=== PATIENT | female | born 1960 | race Caucasian/White ===

== ENCOUNTER 2024-11-20 21:15 | Inpatient (IN) | payer MEDICARE ==
[~2024-11-20] VITALS: Ht 172.7 cm; Wt 82.3 kg
[2024-11-20 22:08] LABS: BASOPHILS ABSOLUTE AUTO 0.07 K/mm3 (0.00-0.23); BASOPHILS PERCENT AUTO 1 % (0-2); EOSINOPHILS ABSOLUTE AUTO 0.07 K/mm3 (0.00-0.68); EOSINOPHILS PERCENT AUTO 1 % (0-6); Hematocrit 41.8 % (33.0-51.0); Hemoglobin 13.3 g/dL (11.5-16.0); IMMATURE GRAN ABSOLUTE AUTO 0.04 K/mm3 (0.00-0.10); IMMATURE GRAN PERCENT AUTO 0 % (0-1); LYMPHOCYTES ABSOLUTE AUTO 1.69 K/mm3 (0.84-5.20); LYMPHOCYTES PERCENT AUTO 13 % (21-46); MONOCYTES ABSOLUTE AUTO 0.85 K/mm3 (0.16-1.47); MONOCYTES PERCENT AUTO 6 % (4-13); Mean Corpuscular HGB Conc 31.8 g/dL (31.5-36.5); Mean Corpuscular Volume 87 fL (80-100); NEUTROPHILS ABSOLUTE AUTO 10.84 K/mm3 (1.96-9.15); NEUTROPHILS PERCENT AUTO 80 % (41-73); NRBC ABSOLUTE 0.00 K/mm3 (0.00-0.02); NRBC Auto 0.0 /100 WBC (0.0-0.2); Platelet Count 339 K/mm3 (150-400); RDW Coefficient Variation 17.2 % (11.7-14.2); RDW Standard Deviation 54.4 fL (35.1-46.3)
[2024-11-20 22:36] LABS: Alanine Aminotransfer (ALT/SGP 14 U/L (12-78); Albumin, Blood 3.6 g/dL (3.4-5.0); Albumin/Globulin Ratio 0.8 (0.8-1.8); Anion Gap 10 mmol/L (3-11); Aspartate Aminotrans (AST/SGOT 11 U/L (12-37); Bilirubin, Total 0.7 mg/dL (0.1-1.0); Blood Urea Nitrogen 18 mg/dL (8-24); CO2, Blood 25 mmol/L (21-32); Calcium, Blood 8.9 mg/dL (8.5-10.1); Chloride, Blood 101 mmol/L (98-108); Creatinine, Blood 0.82 mg/dL (0.40-1.00); Globulin, Blood 4.5 g/dL (2.2-4.0); Glucose, Blood 141 mg/dL (70-99); Potassium, Blood 4.1 mmol/L (3.5-5.5); Sodium, Blood 132 mmol/L (136-145); Total Protein, Blood 8.1 g/dL (6.4-8.2)
[2024-11-20] MEDS ORDERED: Doxycycline Hyclate 100 MG in Dextrose 5% 250 ML IV ONE (23:25)
[2024-11-20] MEDS ORDERED: NS 1,000 ML IV SCH (23:25)
[2024-11-20] MEDS ORDERED: CefTRIAXone Sodium 1,000 MG in NS 50 ML IV ONE (23:25)
[2024-11-21] MEDS ORDERED: NS 1,000 ML IV SCH (01:55)
[2024-11-21 02:10] LABS: Source, Urine Clean Catch
[2024-11-21 02:14] LABS: Bilirubin, Urine Neg (Neg); Glucose Qualitative, Urine 4+ (Neg); Ketones, Urine 3+ (Neg); Leukocyte Esterase, Urine Neg (Neg); Protein, Urine 1+ (Neg); Specific Gravity, Urine 1.015 (1.003-1.022); Urobilinogen, Urine NORM (Normal)
[2024-11-21 02:16] LABS: Color, Urine Yellow (P-Yellow)
[2024-11-21] MEDS ORDERED: FentaNYL Citrate 50 MCG/ML 2 ML Injection IV ONE (03:05)
[2024-11-21] MEDS ORDERED: Ondansetron HCl 2 MG / ML 2ML Vial IV PRN (03:55)
[2024-11-21] MEDS ORDERED: Vancomycin (Pharmacy Consult) IV SCH (03:55)
[2024-11-21] MEDS ORDERED: Naloxone HCl 0.4MG / ML 1ML Vial IV PRN (04:00)
[2024-11-21] MEDS ORDERED: HYDROCODONE-AC1 EAC7 PO (04:05)
[2024-11-21] MEDS ORDERED: LIPITOR80 MG PO (04:05)
[2024-11-21] MEDS ORDERED: OMEP20ER PO (04:07)
[2024-11-21] MEDS ORDERED: JARDIANCE25 MG PO (04:08)
[2024-11-21] MEDS ORDERED: METFORMIN ER G500 MG (04:08)
[2024-11-21] MEDS ORDERED: OXYCONTIN30 MG PO (04:09)
[2024-11-21] MEDS ORDERED: BENADRYL25 MG PO (04:10)
[2024-11-21] MEDS ORDERED: Ketorolac Tromethamine 15mg Vial IV PRN (04:15)
[2024-11-21] MEDS ORDERED: HYDROcodone 10-APAP 325 TAB PO PRN (04:45)
[2024-11-21 05:13] VITALS: BP 115/64
[2024-11-21 05:18] LABS: U Amphetamine Screen Not Detected; U Barbituate Screen Not Detected; U Benzodiazapine Screen DETECTED; U Cocaine Screen Not Detected; U Methadone Screen Not Detected; U Methamphetamine Screen Not Detected; U Opiates Screen DETECTED; U Phencyclidine Screen Not Detected
[2024-11-21 05:19] LABS: U Buprenorphine Screen Not Detected; U Cannabinoids Screen Not Detected; U Oxycodone Screen DETECTED
[2024-11-21] MEDS ORDERED: NS 250 ML IV PRN (06:00)
[2024-11-21 06:13] LABS: BASOPHILS ABSOLUTE AUTO 0.04 K/mm3 (0.00-0.23); BASOPHILS PERCENT AUTO 0 % (0-2); EOSINOPHILS ABSOLUTE AUTO 0.00 K/mm3 (0.00-0.68); EOSINOPHILS PERCENT AUTO 0 % (0-6); Hematocrit 35.3 % (33.0-51.0); Hemoglobin 11.3 g/dL (11.5-16.0); IMMATURE GRAN ABSOLUTE AUTO 0.04 K/mm3 (0.00-0.10); IMMATURE GRAN PERCENT AUTO 0 % (0-1); LYMPHOCYTES ABSOLUTE AUTO 1.10 K/mm3 (0.84-5.20); LYMPHOCYTES PERCENT AUTO 12 % (21-46); MONOCYTES ABSOLUTE AUTO 0.62 K/mm3 (0.16-1.47); MONOCYTES PERCENT AUTO 7 % (4-13); Mean Corpuscular HGB Conc 32.0 g/dL (31.5-36.5); Mean Corpuscular Volume 89 fL (80-100); NEUTROPHILS ABSOLUTE AUTO 7.77 K/mm3 (1.96-9.15); NEUTROPHILS PERCENT AUTO 81 % (41-73); NRBC ABSOLUTE 0.00 K/mm3 (0.00-0.02); NRBC Auto 0.0 /100 WBC (0.0-0.2); Platelet Count 304 K/mm3 (150-400); RDW Coefficient Variation 17.1 % (11.7-14.2); RDW Standard Deviation 55.7 fL (35.1-46.3)
[2024-11-21 06:44] LABS: Alanine Aminotransfer (ALT/SGP 11.0 U/L (12-78); Albumin, Blood 3.1 g/dL (3.4-5.0); Albumin/Globulin Ratio 0.8 (0.8-1.8); Anion Gap 11.0 mmol/L (3-11); Aspartate Aminotrans (AST/SGOT 8.0 U/L (12-37); Bilirubin, Total 0.5 mg/dL (0.1-1.0); Blood Urea Nitrogen 14.0 mg/dL (8-24); CO2, Blood 24.0 mmol/L (21-32); Calcium, Blood 7.8 mg/dL (8.5-10.1); Chloride, Blood 103.0 mmol/L (98-108); Creatinine, Blood 0.71 mg/dL (0.40-1.00); Globulin, Blood 3.7 g/dL (2.2-4.0); Glucose, Blood 74.0 mg/dL (70-99); Potassium, Blood 3.4 mmol/L (3.5-5.5); Sodium, Blood 135.0 mmol/L (136-145); Total Protein, Blood 6.8 g/dL (6.4-8.2)
--- NOTE | 2024-11-21 06:52 | NUR ---
SHIFT SUMMARY PT ADMITTED TO ROOM 359 AT 0440. ABLE TO TRANSFER TO BED INDEPENDENTLY. PT HAS WALKING CANE AND IS INDEPENDENT IN ROOM. RIGHT ELBOW WAS LANCED IN ED. PICTURE TAKEN AND DRESSED WITH NONADHERENT DRESSING. PT DENIES THE NEED FOR PAIN MEDICATION. IV VANCOMYCIN RUNNING PER ORDER. PT HAD HOME MEDICATIONS INCLUDING LORAZEPAM AND OXYCONTIN- MEDS SENT TO PHARMACY. BED IN LOWEST POSITION, CALL LIGHT WITHIN REACH, SIDERAILS UP X2.
[2024-11-21] MEDS ORDERED: Insulin Human Lispro 100 Units/ML 3ML Syringe SC SCH (07:30)
[2024-11-21 08:13] VITALS: BP 132/63
[2024-11-21] MEDS ORDERED: Lactobacil 2-S.Thermo-Bifido 1 1 Cap PO SCH (09:00)
[2024-11-21] MEDS ORDERED: OxyCODONE HCL 15 MG TAB.SR.12H PO SCH (09:00)
[2024-11-21] MEDS ORDERED: Mag Sulfate 1 GM/D5% 100ML 100 ML IV STA (09:58)
[2024-11-21] MEDS ORDERED: Docusate Sodium/Senna 1 Tab PO PRN (15:30)
[2024-11-21] MEDS ORDERED: Polyethylene Glycol 3350 17 gm PO PRN (15:30)
[2024-11-21] MEDS ORDERED: CefTRIAXone Sodium 1,000 MG in NS 100 ML IV SCH (15:36)
[2024-11-21 15:53] VITALS: BP 118/61
--- NOTE | 2024-11-21 17:18 | NUR ---
SHIFT SUMMARY PATIENT A/OX4, ABLE TO MAKE NEEDS KNOWN. PLEASANT AND COOPERATIVE WITH CARE. COMPLAINING OF RIGHT ELBOW PAIN, MEDICATED WITH SCHEDULED PAIN MEDS PER JUL WHICH WERE EFFECTIOVE IN MANAGING PATIENT'S PAIN. IV ABX INFUSED PER JUL. ORTHO CONSULTED AND DR. BRANDON ORDERED CT OF R ELBOW, WHICH HAS YET TO BE OBTAINED. ELEVATED TEMP THIS MORNIONG AT 99 DEGREES F WHICH HAS SINCE SUBSIDED. NICOTINE PATCH ORDERED. NO OTHER CONCERNS AT THIS TIME, WILL CONTINUE TO MONITOR.
--- NOTE | 2024-11-21 18:29 | NUR ---
URINARY RETENTION-MD CONTACT POST VOID BLADDER SCAN SHOWED [address] FRANCOIS NOTIFIED AND ORDER TO [place] TO MONITOR AND STRICT OUTPUT MEASUREMENT. BLADDER SCAN ORDER IN PLACE. WILL CONTNUE TO MONITOR.
[2024-11-21 19:45] VITALS: BP 130/70
[2024-11-22] VITALS (15 sets, daily range): BP systolic 103–164; BP diastolic 53–104
[2024-11-22 05:08] LABS: BASOPHILS ABSOLUTE AUTO 0.03 K/mm3 (0.00-0.23); BASOPHILS PERCENT AUTO 0 % (0-2); EOSINOPHILS ABSOLUTE AUTO 0.09 K/mm3 (0.00-0.68); EOSINOPHILS PERCENT AUTO 1 % (0-6); Hematocrit 35.6 % (33.0-51.0); Hemoglobin 11.4 g/dL (11.5-16.0); IMMATURE GRAN ABSOLUTE AUTO 0.03 K/mm3 (0.00-0.10); IMMATURE GRAN PERCENT AUTO 0 % (0-1); LYMPHOCYTES ABSOLUTE AUTO 1.73 K/mm3 (0.84-5.20); LYMPHOCYTES PERCENT AUTO 26 % (21-46); MONOCYTES ABSOLUTE AUTO 0.72 K/mm3 (0.16-1.47); MONOCYTES PERCENT AUTO 11 % (4-13); Mean Corpuscular HGB Conc 32.0 g/dL (31.5-36.5); Mean Corpuscular Volume 88 fL (80-100); NEUTROPHILS ABSOLUTE AUTO 4.12 K/mm3 (1.96-9.15); NEUTROPHILS PERCENT AUTO 62 % (41-73); NRBC ABSOLUTE 0.00 K/mm3 (0.00-0.02); NRBC Auto 0.0 /100 WBC (0.0-0.2); Platelet Count 287 K/mm3 (150-400); RDW Coefficient Variation 17.2 % (11.7-14.2); RDW Standard Deviation 54.9 fL (35.1-46.3)
[2024-11-22 05:30] LABS: Anion Gap 7.0 mmol/L (3-11); Blood Urea Nitrogen 8.0 mg/dL (8-24); CO2, Blood 29.0 mmol/L (21-32); Calcium, Blood 8.4 mg/dL (8.5-10.1); Chloride, Blood 107.0 mmol/L (98-108); Creatinine, Blood 0.66 mg/dL (0.40-1.00); Glucose, Blood 90.0 mg/dL (70-99); Magnesium, Blood 1.8 mg/dL (1.6-2.4); Potassium, Blood 3.6 mmol/L (3.5-5.5); Sodium, Blood 139.0 mmol/L (136-145)
--- NOTE | 2024-11-22 06:36 | NUR ---
SHIFT SUMMARY PT SLEPT SHORT INTERVALS DURING THE NIGHT. RIGHT ELBOW CELLULITIS CONTINUES. CT DONE LAST NIGHT. PT NPO AFTER MIDNIGHT FOR POSSIBLE INTERVENTION. SCHEDULED PAIN MEDS PER EMAR. IV ANTIBIOTICS PER ORDER. PT INDEPENDENT IN ROOM. VOIDING LARGE AMOUNTS. BED IN LOWEST POSITION, CALL LIGHT WITHIN REACH, SIDERAILS UP X2.
[2024-11-22] MEDS ORDERED: D5W-1/4NS 1,000 ML IV SCH (12:00)
--- NOTE | 2024-11-22 12:00 | NUR ---
THIS RN COVERING FOR COURTNEY ZARCO DURING LUNCH. EFRAIN CBG IS 79. CALL TO [facility] ORDER RECEIVED FOR D5 1/2 NS AT 75ML/HR FROM .
[2024-11-22] MEDS ORDERED: D5W-1/2NS 1,000 ML IV SCH (12:05)
[2024-11-22] MEDS ORDERED: FentaNYL Citrate 50 MCG/ML 2 ML Injection ONE ×3 (12:14→13:43)
--- NOTE | 2024-11-22 12:26 | NUR ---
PT HAS 20G IV TO LEFT AC THAT FLUSHES WELL AND FLOWS TO GRAVITY.
[2024-11-22] MEDS ORDERED: OZEMPIC0.25 MG/02 SQ (12:33)
--- NOTE | 2024-11-22 12:39 | NUR ---
PT BROUGHT FROM FLOOR TO DAY SURGERY FOR PROCEDURE. VSS. PT ON RA. PT A&OX4. History, Chart, Medications and Allergies reviewed before start of procedure. Lungs clear T/O to Auscultation. Patient confirms NPO status and agrees with scheduled surgery. Pre-Op teaching done. Pt verbalizes understanding. PT JEWELRY, EARBUDS AND GLASSES PLACED IN A BAG AND TAKEN TO PACU FOR SAFEKEEPING. PT OTHER BELONGINGS LEFT IN PERSONAL ROOM ON MEDICAL FLOOR.
[2024-11-22] MEDS ORDERED: HYDROmorphone HCl/Pf 1MG SYR IV PRN ×2 (13:15)
[2024-11-22] MEDS ORDERED: Labetalol HCL 5 MG/ML 4ML Injection (Single Dose) IV PRN (13:15)
[2024-11-22] MEDS ORDERED: Metoclopramide HCl 5MG / ML 2ML Vial IV PRN (13:15)
[2024-11-22] MEDS ORDERED: Ondansetron HCl 2 MG / ML 2ML Vial IV PRN (13:20)
[2024-11-22] MEDS ORDERED: FentaNYL Citrate 50 MCG/ML 2 ML Injection IV PRN ×2 (13:20)
[2024-11-22] MEDS ORDERED: Sugammadex Sodium 200 MG/2ML SDV (100 MG/ML) ONE (13:21)
[2024-11-22] MEDS ORDERED: HYDROmorphone HCl/Pf 1MG SYR ONE (14:12)
--- NOTE | 2024-11-22 14:45 | NUR ---
DELAYED TRANSFER DUE TO IV INFILTRATED. IV REMOVED AND NEW IV STARTED
--- NOTE | 2024-11-22 15:09 | NUR ---
PT RETUNRED FROM DAY SURGERY. I&D COMPLETED TO R ELBOW. PT REPORTS PAIN WELL CONTROLLED AT THIS TIME. VITALS STABLE. PT IS AWAKE AND ALERT. SMALL BM AFTER RETURNING FROM DAY SURGERY. PT STARTED ON ADA DIET - TOLERATING INTAKE AND SWALLOWING WITHOUT DIFFICULTY. PT CURRENTY RESTING IN BED WITH BED IN LOWEST POSITION AND CALL LIGHT WITHIN REACH.
--- NOTE | 2024-11-22 17:31 | NUR ---
SHIFT SUMMARY NO ACUTE CHANGES, A/Ox4, ABLE TO MAKE NEEDS KNOWN AND USES CALL SYSTEM APPROPRIATELY. I&D OF R ELBOW COMPLETED TODAY. SWALLOWING INTACT, VITALS STABLE, TREATING FOR PAIN PER EMAR. DRESSING C/D/I. PT CURRENTLY RESTING IN BED WITH BED IN LOWEST POSITION AND CALL LIGHT WITHIN REACH.
[2024-11-22 17:46] LABS: Vancomycin, Trough 17.1 ug/mL (5.0-10.0)
[2024-11-23 02:06] VITALS: BP 124/87
--- NOTE | 2024-11-23 04:46 | NUR ---
PT A&O X4, VS WNL, VOIDING WITHOUT ISSUE. PAIN NOTED IN RIGHT ELBOW, MEDICATED WITH ROUTINE OXYCONTINE, AND ICE PACKS. PT INDEPENDENT WITH MOBILITY. CBG WNL, DRESSING INTACT AND NO DRAINAGE NOTED, ALL SENSATION PRESENT IN AFFLICTED LIMB. USES CALL SYSTEM APPROPRIATLY. PLAN TO RETURN TO HOME WITH .
[2024-11-23 05:08] LABS: BASOPHILS ABSOLUTE AUTO 0.03 K/mm3 (0.00-0.23); BASOPHILS PERCENT AUTO 0 % (0-2); EOSINOPHILS ABSOLUTE AUTO 0.22 K/mm3 (0.00-0.68); EOSINOPHILS PERCENT AUTO 3 % (0-6); Hematocrit 36.8 % (33.0-51.0); Hemoglobin 11.6 g/dL (11.5-16.0); IMMATURE GRAN ABSOLUTE AUTO 0.02 K/mm3 (0.00-0.10); IMMATURE GRAN PERCENT AUTO 0 % (0-1); LYMPHOCYTES ABSOLUTE AUTO 2.03 K/mm3 (0.84-5.20); LYMPHOCYTES PERCENT AUTO 26 % (21-46); MONOCYTES ABSOLUTE AUTO 0.72 K/mm3 (0.16-1.47); MONOCYTES PERCENT AUTO 9 % (4-13); Mean Corpuscular HGB Conc 31.5 g/dL (31.5-36.5); Mean Corpuscular Volume 88 fL (80-100); NEUTROPHILS ABSOLUTE AUTO 4.70 K/mm3 (1.96-9.15); NEUTROPHILS PERCENT AUTO 61 % (41-73); NRBC ABSOLUTE 0.00 K/mm3 (0.00-0.02); NRBC Auto 0.0 /100 WBC (0.0-0.2); Platelet Count 292 K/mm3 (150-400); RDW Coefficient Variation 17.2 % (11.7-14.2); RDW Standard Deviation 55.5 fL (35.1-46.3)
[2024-11-23 05:29] LABS: Alanine Aminotransfer (ALT/SGP 17.0 U/L (12-78); Albumin, Blood 2.8 g/dL (3.4-5.0); Albumin/Globulin Ratio 0.7 (0.8-1.8); Anion Gap 9.0 mmol/L (3-11); Aspartate Aminotrans (AST/SGOT 13.0 U/L (12-37); Bilirubin, Total 0.3 mg/dL (0.1-1.0); Blood Urea Nitrogen 11.0 mg/dL (8-24); CO2, Blood 27.0 mmol/L (21-32); Calcium, Blood 8.4 mg/dL (8.5-10.1); Chloride, Blood 108.0 mmol/L (98-108); Creatinine, Blood 0.65 mg/dL (0.40-1.00); Globulin, Blood 3.8 g/dL (2.2-4.0); Glucose, Blood 168.0 mg/dL (70-99); Potassium, Blood 2.9 mmol/L (3.5-5.5); Sodium, Blood 141.0 mmol/L (136-145); Total Protein, Blood 6.6 g/dL (6.4-8.2)
--- NOTE | 2024-11-23 05:42 | NUR ---
POTASSIUM LEVEL LOW THIS AM, SEE NEW ORDERS.
[2024-11-23 07:32] VITALS: BP 127/65
[2024-11-23 12:38] LABS: Anion Gap 10.0 mmol/L (3-11); Blood Urea Nitrogen 12.0 mg/dL (8-24); CO2, Blood 24.0 mmol/L (21-32); Calcium, Blood 8.6 mg/dL (8.5-10.1); Chloride, Blood 109.0 mmol/L (98-108); Creatinine, Blood 0.69 mg/dL (0.40-1.00); Glucose, Blood 179.0 mg/dL (70-99); Potassium, Blood 3.8 mmol/L (3.5-5.5); Sodium, Blood 139.0 mmol/L (136-145)
[2024-11-23] MEDS ORDERED: LORAZEPAM0.5 MG PO (15:04)
[2024-11-23] MEDS ORDERED: CYCL10 PO (15:05)
[2024-11-23] MEDS ORDERED: SYNTHROID137 MCG PO (15:05)
[2024-11-23] MEDS ORDERED: MOBIC15 MG PO (15:05)
[2024-11-23] MEDS ORDERED: GLUCOPHAGE1000 M1 PO (15:06)
--- NOTE | 2024-11-23 18:25 | NUR ---
PATIENT A/OX4, UP INDEPENDENTLY IN ROOM. VSS, ON RA. R ELBOW DRESSING REMAINS C/D/I. DRESSING CHANGES TO START PER DR OLMOS ORDER TOMORROW. PAIN CONTROLLED WITH SCHEDULED OXYCONTIN AND TORADOL X1 THIS SHIFT. REPEAT BLOOD CX DRAWN TODAY AND ECHO COMPLETED. PATIENT PLEASANT AND COOPERAIVE, NO NEW CONCERNS THIS SHIFT.
[2024-11-23 19:49] VITALS: BP 130/92
[2024-11-24 03:11] VITALS: BP 116/66
[2024-11-24 05:03] LABS: BASOPHILS ABSOLUTE AUTO 0.04 K/mm3 (0.00-0.23); BASOPHILS PERCENT AUTO 0 % (0-2); EOSINOPHILS ABSOLUTE AUTO 0.26 K/mm3 (0.00-0.68); EOSINOPHILS PERCENT AUTO 3 % (0-6); Hematocrit 32.6 % (33.0-51.0); Hemoglobin 10.2 g/dL (11.5-16.0); IMMATURE GRAN ABSOLUTE AUTO 0.02 K/mm3 (0.00-0.10); IMMATURE GRAN PERCENT AUTO 0 % (0-1); LYMPHOCYTES ABSOLUTE AUTO 3.03 K/mm3 (0.84-5.20); LYMPHOCYTES PERCENT AUTO 34 % (21-46); MONOCYTES ABSOLUTE AUTO 0.79 K/mm3 (0.16-1.47); MONOCYTES PERCENT AUTO 9 % (4-13); Mean Corpuscular HGB Conc 31.3 g/dL (31.5-36.5); Mean Corpuscular Volume 88 fL (80-100); NEUTROPHILS ABSOLUTE AUTO 4.86 K/mm3 (1.96-9.15); NEUTROPHILS PERCENT AUTO 54 % (41-73); NRBC ABSOLUTE 0.00 K/mm3 (0.00-0.02); NRBC Auto 0.0 /100 WBC (0.0-0.2); Platelet Count 277 K/mm3 (150-400); RDW Coefficient Variation 17.2 % (11.7-14.2); RDW Standard Deviation 54.9 fL (35.1-46.3)
[2024-11-24 05:42] LABS: Anion Gap 9 mmol/L (3-11); Blood Urea Nitrogen 12 mg/dL (8-24); CO2, Blood 26 mmol/L (21-32); Calcium, Blood 8.4 mg/dL (8.5-10.1); Chloride, Blood 111 mmol/L (98-108); Creatinine, Blood 0.68 mg/dL (0.40-1.00); Glucose, Blood 127 mg/dL (70-99); Potassium, Blood 4.5 mmol/L (3.5-5.5); Sodium, Blood 141 mmol/L (136-145)
[2024-11-24 05:43] LABS: Vancomycin, Trough 24.6 ug/mL (5.0-10.0)
--- NOTE | 2024-11-24 07:14 | NUR ---
NO ACUTE CHANGES, CALL LIGHT WTH IN REACH, INDEPEDANT IN ROOM, PLEASANT TO CARE, VANCO HELD DUE TO HIGH TROUGH, MEDICATED FOR PAIN WITH IV TORADOL
[2024-11-24 07:27] VITALS: BP 126/76
[2024-11-24 15:26] VITALS: BP 148/109
[2024-11-24] MEDS ORDERED: FentaNYL Citrate 50 MCG/ML 2 ML Injection IV PRN (17:10)
--- NOTE | 2024-11-24 18:40 | NUR ---
PATIENT ALERT AND COOPERTIVE WITH CARE AND DRESSING CHANGE TODAY. PATIENT VERBALIZED RELIEF AND FELLING BETTER WITH NEW DRESSING. EXTRA SUPPLIES LEFT AT BEDSIDE FOR TOMORROW CHANGE. ABX GIVEN AFTER POWER GLIDE INSERTED. NO CONCERNS
[2024-11-24 19:37] VITALS: BP 140/104
[2024-11-25] VITALS (7 sets, daily range): BP systolic 147–175; BP diastolic 82–110
--- NOTE | 2024-11-25 03:25 | NUR ---
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 PT RECEIVED DRESSING CHANGE PER AM RN. DRESSING REMAINS CDI. PT RECEIVED SCHEDULED OXYCODONE PER EMAR. PT REPORTS PAIN WELL CONTROLLED. NO ADDITIONAL PAIN MEDS NEEDED. PT COOPERATIVE W/ CARE & GETS UP INDEPENDENTLY. BED IN LOWEST POSITION, WHEELS LOCKED. PERSONAL BELONGINGS AND CALL LIGHT WITHIN REACH FOR SAFETY.
[2024-11-25 05:59] LABS: BASOPHILS ABSOLUTE AUTO 0.04 K/mm3 (0.00-0.23); BASOPHILS PERCENT AUTO 0 % (0-2); EOSINOPHILS ABSOLUTE AUTO 0.29 K/mm3 (0.00-0.68); EOSINOPHILS PERCENT AUTO 3 % (0-6); Hematocrit 36.5 % (33.0-51.0); Hemoglobin 11.5 g/dL (11.5-16.0); IMMATURE GRAN ABSOLUTE AUTO 0.03 K/mm3 (0.00-0.10); IMMATURE GRAN PERCENT AUTO 0 % (0-1); LYMPHOCYTES ABSOLUTE AUTO 3.10 K/mm3 (0.84-5.20); LYMPHOCYTES PERCENT AUTO 33 % (21-46); MONOCYTES ABSOLUTE AUTO 0.78 K/mm3 (0.16-1.47); MONOCYTES PERCENT AUTO 8 % (4-13); Mean Corpuscular HGB Conc 31.5 g/dL (31.5-36.5); Mean Corpuscular Volume 87 fL (80-100); NEUTROPHILS ABSOLUTE AUTO 5.17 K/mm3 (1.96-9.15); NEUTROPHILS PERCENT AUTO 55 % (41-73); NRBC ABSOLUTE 0.00 K/mm3 (0.00-0.02); NRBC Auto 0.0 /100 WBC (0.0-0.2); Platelet Count 317 K/mm3 (150-400); RDW Coefficient Variation 17.2 % (11.7-14.2); RDW Standard Deviation 53.9 fL (35.1-46.3)
[2024-11-25 06:21] LABS: Anion Gap 8.0 mmol/L (3-11); Blood Urea Nitrogen 8.0 mg/dL (8-24); CO2, Blood 26.0 mmol/L (21-32); Calcium, Blood 8.9 mg/dL (8.5-10.1); Chloride, Blood 109.0 mmol/L (98-108); Creatinine, Blood 0.62 mg/dL (0.40-1.00); Glucose, Blood 174.0 mg/dL (70-99); Potassium, Blood 3.9 mmol/L (3.5-5.5); Sodium, Blood 139.0 mmol/L (136-145)
--- NOTE | 2024-11-25 18:09 | NUR ---
PATIENT INDEPENDENT WITH SELF CARE AND NEEDS MINIMAL ASSIST FROM STAFF. WOUND CARE DONE TO RIGHT ELBOW AND PATIENT TOLERATED WELL. WOUND APPEARS LESS SWOLLEN THAN YESTERDAY AND PATIENT VERBALIZED FEELING BETTER WHEN WRAPPED WITH KERLEX AND JULIET BANDAGE. PATIENT HAS NO CONCERNS AT THIS TIME.
--- NOTE | 2024-11-25 22:19 | NUR ---
GAVE REPORT TO COOK TORTILLA JOHN WHO ASSUMED CARE @ [id number].
--- NOTE | 2024-11-26 04:39 | NUR ---
NOC SUMMARY- PT CARE ASSUMED BY THIS RN @ 2230 HRS FROM BEN ZARCO. PT HAS BEEN RESTING COMFORTABLY. PT DENIES PAIN OR DISCOMFORT. CALL LIGHT IN REACH.
[2024-11-26 05:02] VITALS: BP 172/90
[2024-11-26 05:25] LABS: BASOPHILS ABSOLUTE AUTO 0.05 K/mm3 (0.00-0.23); BASOPHILS PERCENT AUTO 1 % (0-2); EOSINOPHILS ABSOLUTE AUTO 0.23 K/mm3 (0.00-0.68); EOSINOPHILS PERCENT AUTO 3 % (0-6); Hematocrit 34.4 % (33.0-51.0); Hemoglobin 10.7 g/dL (11.5-16.0); IMMATURE GRAN ABSOLUTE AUTO 0.04 K/mm3 (0.00-0.10); IMMATURE GRAN PERCENT AUTO 0 % (0-1); LYMPHOCYTES ABSOLUTE AUTO 3.41 K/mm3 (0.84-5.20); LYMPHOCYTES PERCENT AUTO 38 % (21-46); MONOCYTES ABSOLUTE AUTO 0.69 K/mm3 (0.16-1.47); MONOCYTES PERCENT AUTO 8 % (4-13); Mean Corpuscular HGB Conc 31.1 g/dL (31.5-36.5); Mean Corpuscular Volume 88 fL (80-100); NEUTROPHILS ABSOLUTE AUTO 4.66 K/mm3 (1.96-9.15); NEUTROPHILS PERCENT AUTO 51 % (41-73); NRBC ABSOLUTE 0.00 K/mm3 (0.00-0.02); NRBC Auto 0.0 /100 WBC (0.0-0.2); Platelet Count 337 K/mm3 (150-400); RDW Coefficient Variation 17.2 % (11.7-14.2); RDW Standard Deviation 55.2 fL (35.1-46.3)
[2024-11-26 06:07] LABS: Anion Gap 8.0 mmol/L (3-11); Blood Urea Nitrogen 7.0 mg/dL (8-24); CO2, Blood 28.0 mmol/L (21-32); Calcium, Blood 8.7 mg/dL (8.5-10.1); Chloride, Blood 108.0 mmol/L (98-108); Creatinine, Blood 0.59 mg/dL (0.40-1.00); Glucose, Blood 99.0 mg/dL (70-99); Potassium, Blood 3.5 mmol/L (3.5-5.5); Sodium, Blood 140.0 mmol/L (136-145)
[2024-11-26 07:27] VITALS: BP 184/92
[2024-11-26 11:22] VITALS: BP 130/89
[2024-11-26 16:59] VITALS: BP 132/65
[2024-11-26 17:35] LABS: Vancomycin, Trough 13.0 ug/mL (5.0-10.0)
--- NOTE | 2024-11-26 17:36 | NUR ---
SHIFT SUMMARY NO ACUTE CHANGES. FULL CODE. A/Ox4, INDEPENDENT IN ROOM. TREATED FOR PAIN PER EMAR. DRESSING CHANGE COMPLETED PER EMAR. PT CURRENTLY SLEEPING IN HOSPITAL BED WITH BED IN LOWEST POSITION AND CALL LIGHT WITHIN REACH.
[2024-11-26 19:29] VITALS: BP 148/82
--- NOTE | 2024-11-27 03:59 | NUR ---
PT ALERT AND ORIENTED X4. PATIENT ON IV ANTIBIOTICS- BRANDY POWERGLIDE IN PLACE. PATIENT ON ROOM UP, UP INDEPENDENTLY IN ROOM. PATIENT GIVEN SCHEDULED OXYCONTIN FOR PAIN. BED IN LOW POSITION WITH WHEELS LOCKED. CALL LIGHT WITHIN REACH.
[2024-11-27 05:40] VITALS: BP 161/90
[2024-11-27 07:21] VITALS: BP 159/80
[2024-11-27 08:39] LABS: BASOPHILS ABSOLUTE AUTO 0.07 K/mm3 (0.00-0.23); BASOPHILS PERCENT AUTO 1 % (0-2); EOSINOPHILS ABSOLUTE AUTO 0.20 K/mm3 (0.00-0.68); EOSINOPHILS PERCENT AUTO 2 % (0-6); Hematocrit 35.5 % (33.0-51.0); Hemoglobin 11.3 g/dL (11.5-16.0); IMMATURE GRAN ABSOLUTE AUTO 0.05 K/mm3 (0.00-0.10); IMMATURE GRAN PERCENT AUTO 1 % (0-1); LYMPHOCYTES ABSOLUTE AUTO 3.97 K/mm3 (0.84-5.20); LYMPHOCYTES PERCENT AUTO 37 % (21-46); MONOCYTES ABSOLUTE AUTO 0.75 K/mm3 (0.16-1.47); MONOCYTES PERCENT AUTO 7 % (4-13); Mean Corpuscular HGB Conc 31.8 g/dL (31.5-36.5); Mean Corpuscular Volume 88 fL (80-100); NEUTROPHILS ABSOLUTE AUTO 5.59 K/mm3 (1.96-9.15); NEUTROPHILS PERCENT AUTO 53 % (41-73); NRBC ABSOLUTE 0.00 K/mm3 (0.00-0.02); NRBC Auto 0.0 /100 WBC (0.0-0.2); Platelet Count 393 K/mm3 (150-400); RDW Coefficient Variation 17.3 % (11.7-14.2); RDW Standard Deviation 55.4 fL (35.1-46.3)
--- NOTE | 2024-11-27 09:00 | NUR ---
pt sitting up on the side of the bed, a/ox4, pleasant and cooperative with care, follows commands well, lungs are clear but dim t/o. resp are shallow, r/a, no cough noted, hrr, no edema noted, ppp+2, cap refill<3 sec, vs stable, afebrile, power glide to maggie site is clear and patent, and draws well, btx4, abd flat soft nontender, voids without diff, skin has dressing to right elbow, c/d/i, mawe, up indep, megan, call light in reach.
[2024-11-27 09:08] LABS: Anion Gap 7.0 mmol/L (3-11); Blood Urea Nitrogen 9.0 mg/dL (8-24); CO2, Blood 28.0 mmol/L (21-32); Calcium, Blood 8.9 mg/dL (8.5-10.1); Chloride, Blood 105.0 mmol/L (98-108); Creatinine, Blood 0.69 mg/dL (0.40-1.00); Glucose, Blood 133.0 mg/dL (70-99); Potassium, Blood 3.5 mmol/L (3.5-5.5); Sodium, Blood 136.0 mmol/L (136-145)
[2024-11-27 11:42] VITALS: BP 161/84
--- NOTE | 2024-11-27 11:48 | NUR ---
nurse called to room because her right arm is swelling, and is in a lot of pain at this time, medicated her with 25mcg fentanyl with good relief, notified Dr. Gonzalez. He will come to see it. call light in reach.
[2024-11-27 16:29] VITALS: BP 131/69
--- NOTE | 2024-11-27 19:15 | NUR ---
pt had an episode of swelling to right arm with pain, gave her a dose of fentanyl per emar, which was effective. notified Dr. Gonzalez, no further changes this shift. call light in reach.
[2024-11-27 19:21] VITALS: BP 142/86
[2024-11-27 23:53] VITALS: BP 180/106
[2024-11-28 00:04] VITALS: BP 154/100
[2024-11-28 03:42] VITALS: BP 164/112
[2024-11-28 04:56] LABS: BASOPHILS ABSOLUTE AUTO 0.05 K/mm3 (0.00-0.23); BASOPHILS PERCENT AUTO 1 % (0-2); EOSINOPHILS ABSOLUTE AUTO 0.20 K/mm3 (0.00-0.68); EOSINOPHILS PERCENT AUTO 2 % (0-6); Hematocrit 33.9 % (33.0-51.0); Hemoglobin 10.5 g/dL (11.5-16.0); IMMATURE GRAN ABSOLUTE AUTO 0.05 K/mm3 (0.00-0.10); IMMATURE GRAN PERCENT AUTO 1 % (0-1); LYMPHOCYTES ABSOLUTE AUTO 3.28 K/mm3 (0.84-5.20); LYMPHOCYTES PERCENT AUTO 38 % (21-46); MONOCYTES ABSOLUTE AUTO 0.53 K/mm3 (0.16-1.47); MONOCYTES PERCENT AUTO 6 % (4-13); Mean Corpuscular HGB Conc 31.0 g/dL (31.5-36.5); Mean Corpuscular Volume 89 fL (80-100); NEUTROPHILS ABSOLUTE AUTO 4.53 K/mm3 (1.96-9.15); NEUTROPHILS PERCENT AUTO 52 % (41-73); NRBC ABSOLUTE 0.00 K/mm3 (0.00-0.02); NRBC Auto 0.0 /100 WBC (0.0-0.2); Platelet Count 407 K/mm3 (150-400); RDW Coefficient Variation 17.3 % (11.7-14.2); RDW Standard Deviation 55.9 fL (35.1-46.3)
[2024-11-28 05:35] LABS: Anion Gap 7.0 mmol/L (3-11); Blood Urea Nitrogen 13.0 mg/dL (8-24); CO2, Blood 27.0 mmol/L (21-32); Calcium, Blood 8.7 mg/dL (8.5-10.1); Chloride, Blood 106.0 mmol/L (98-108); Creatinine, Blood 0.64 mg/dL (0.40-1.00); Glucose, Blood 181.0 mg/dL (70-99); Potassium, Blood 3.2 mmol/L (3.5-5.5); Sodium, Blood 137.0 mmol/L (136-145)
[2024-11-28 08:36] VITALS: BP 169/96
[2024-11-28 16:23] VITALS: BP 145/79
--- NOTE | 2024-11-28 19:21 | NUR ---
assumed care of pt. a/o x4 quietly sitting at bedisde listening to music. cheyenne bandage to right elbow clean dry and intact. power guide flushing well with good blood return.
--- NOTE | 2024-11-28 19:23 | NUR ---
dressing change pt medicated with fentanly, dressing discarded packing removed. wound is clean and dry no discharge noted no maloderous smell, pt eddie well. wound was repacked and redressed..
[2024-11-28 19:34] VITALS: BP 156/97
[2024-11-29 03:57] VITALS: BP 179/106
[2024-11-29 05:17] LABS: BASOPHILS ABSOLUTE AUTO 0.06 K/mm3 (0.00-0.23); BASOPHILS PERCENT AUTO 1 % (0-2); EOSINOPHILS ABSOLUTE AUTO 0.18 K/mm3 (0.00-0.68); EOSINOPHILS PERCENT AUTO 2 % (0-6); Hematocrit 32.9 % (33.0-51.0); Hemoglobin 10.3 g/dL (11.5-16.0); IMMATURE GRAN ABSOLUTE AUTO 0.06 K/mm3 (0.00-0.10); IMMATURE GRAN PERCENT AUTO 1 % (0-1); LYMPHOCYTES ABSOLUTE AUTO 3.70 K/mm3 (0.84-5.20); LYMPHOCYTES PERCENT AUTO 41 % (21-46); MONOCYTES ABSOLUTE AUTO 0.62 K/mm3 (0.16-1.47); MONOCYTES PERCENT AUTO 7 % (4-13); Mean Corpuscular HGB Conc 31.3 g/dL (31.5-36.5); Mean Corpuscular Volume 89 fL (80-100); NEUTROPHILS ABSOLUTE AUTO 4.49 K/mm3 (1.96-9.15); NEUTROPHILS PERCENT AUTO 49 % (41-73); NRBC ABSOLUTE 0.00 K/mm3 (0.00-0.02); NRBC Auto 0.0 /100 WBC (0.0-0.2); Platelet Count 413 K/mm3 (150-400); RDW Coefficient Variation 17.2 % (11.7-14.2); RDW Standard Deviation 56.0 fL (35.1-46.3)
[2024-11-29 05:48] LABS: Anion Gap 6.0 mmol/L (3-11); Blood Urea Nitrogen 11.0 mg/dL (8-24); CO2, Blood 28.0 mmol/L (21-32); Calcium, Blood 9.0 mg/dL (8.5-10.1); Chloride, Blood 108.0 mmol/L (98-108); Creatinine, Blood 0.64 mg/dL (0.40-1.00); Glucose, Blood 168.0 mg/dL (70-99); Potassium, Blood 3.3 mmol/L (3.5-5.5); Sodium, Blood 139.0 mmol/L (136-145)
[2024-11-29 07:52] VITALS: BP 171/101
[2024-11-29] MEDS ORDERED: HydrALAZINE HCl 20 MG / ML 1ML Vial IV PRN (09:30)
[2024-11-29 10:10] VITALS: BP 169/110
[2024-11-29 10:58] VITALS: BP 177/85
[2024-11-29 11:43] VITALS: BP 125/90
[2024-11-29] MEDS ORDERED: NICO21TP TOP (13:23)
[2024-11-29] MEDS ORDERED: MIRALAX17 GM PO (13:23)
[2024-11-29] MEDS ORDERED: VISBIOME 112.51 EACH PO (13:36)
[2024-11-29] MEDS ORDERED: VANCOMYCIN1.25 GM/24 IV (13:36)
[2024-11-29] MEDS ORDERED: AMLO5 PO (13:37)
[2024-11-29] MEDS ORDERED: OXYC30ER PO (13:38)
[2024-11-29 16:02] LABS: Vancomycin, Trough 14.5 ug/mL (5.0-10.0)
[2024-11-29 17:44] VITALS: BP 171/99
--- NOTE | 2024-11-29 19:37 | NUR ---
assumed care pt did very well today had minimal pain even during wound dressing. discharge orders given. pt to be discharged after vancomycin given at 1600 per pharmacy, instructions given for discharge. AMISH to given iv medication as well as do wound care. pt aware and verbalized understanding.
== END 2024-11-29 18:23 | disposition home or self-care (01) | DRG 854 ==
LOC: ER 21:15 → MEDS 11-21 03:52
PROVIDERS: Emergency Medicine; Family Medicine; Internal Medicine; ADMIT Student in an Organized Health Care Education/Training Program
PROC: 0H9BXZZ Drainage of Right Upper Arm Skin, External Approach (ICD-10-PCS; principal; 2024-11-21)
PROC: 3E03329 Introduction of Other Anti-infective into Peripheral Vein, Percutaneous Approach (ICD-10-PCS; 2024-11-21)
PROC: 0LB30ZZ Excision of Right Upper Arm Tendon, Open Approach (ICD-10-PCS; 2024-11-22)
DX: A41.02 Sepsis due to Methicillin resistant Staphylococcus aureus (principal); E87.1 Hypo-osmolality and hyponatremia; L03.113 Cellulitis of right upper limb; N12 Tubulo-interstitial nephritis, not specified as acute or chronic; L02.413 Cutaneous abscess of right upper limb; F17.210 Nicotine dependence, cigarettes, uncomplicated; F11.90 Opioid use, unspecified, uncomplicated; K59.09 Other constipation; E11.9 Type 2 diabetes mellitus without complications; F12.90 Cannabis use, unspecified, uncomplicated; E83.42 Hypomagnesemia; E87.6 Hypokalemia; M70.21 Olecranon bursitis, right elbow; N32.89 Other specified disorders of bladder; R00.0 Tachycardia, unspecified; G89.4 Chronic pain syndrome; L40.50 Arthropathic psoriasis, unspecified; D64.9 Anemia, unspecified; M25.532 Pain in left wrist; Z86.14 Personal history of Methicillin resistant Staphylococcus aureus infection; Z87.19 Personal history of other diseases of the digestive system; Z79.899 Other long term (current) drug therapy; Z79.84 Long term (current) use of oral hypoglycemic drugs; Z98.890 Other specified postprocedural states; Z90.49 Acquired absence of other specified parts of digestive tract
CPT/HCPCS: 10060; 36415; 73070; 73201; 74177; 80048; 80053; 80202; 82947; 83605; 83690; 83735; 85025; 85651; 86140; 87040; 87070; 87075; 87077; 87147; 87186; 87205; 93005; 93010; 93306; 94760; 96361-59; 96365; 96366-59; 96367-59; 99285-25; A9270; C1751; J0360; J0696; J1171; J1885; J2704; J3010; J3370; J3373; J3475; J7030; J7040; J7042; J7050; J7060; J7070; J7120; Q9967

== ENCOUNTER 2024-11-30 03:22 | Day surgery (SDC) | payer MEDICARE ==
[~2024-11-30 03:22] MED LIST: AMLO5 PO; BENADRYL25 MG PO; CYCL10 PO; GLUCOPHAGE1000 M1 PO; HYDROCODONE-AC1 EAC7 PO; JARDIANCE25 MG PO; LIPITOR80 MG PO; LORAZEPAM0.5 MG PO; METFORMIN ER G500 MG; MIRALAX17 GM PO; MOBIC15 MG PO; NICO21TP TOP; OMEP20ER PO; OXYC30ER PO; OXYCONTIN30 MG PO; OZEMPIC0.25 MG/02 SQ; SYNTHROID137 MCG PO; VANCOMYCIN1.25 GM/24 IV; VISBIOME 112.51 EACH PO
[2024-11-30 13:46] VITALS: BP 143/89
== END 2024-11-30 15:15 | disposition home or self-care (01) ==
LOC: ATC 03:22
DX: A41.9 Sepsis, unspecified organism (principal); M71.121 Other infective bursitis, right elbow; E11.9 Type 2 diabetes mellitus without complications; G89.29 Other chronic pain; K59.03 Drug induced constipation; T40.2X5A Adverse effect of other opioids, initial encounter; F17.210 Nicotine dependence, cigarettes, uncomplicated; Z86.14 Personal history of Methicillin resistant Staphylococcus aureus infection; Z79.1 Long term (current) use of non-steroidal anti-inflammatories (NSAID); Z79.84 Long term (current) use of oral hypoglycemic drugs; Z79.890 Hormone replacement therapy; Z79.899 Other long term (current) drug therapy
CPT/HCPCS: 96365; 96366; 99212; J3373; J7050

== ENCOUNTER 2024-12-01 01:27 | Day surgery (SDC) | payer MEDICARE ==
[2024-12-01 13:35] VITALS: BP 150/92
== END 2024-12-01 15:11 | disposition home or self-care (01) ==
LOC: ATC 01:27
DX: M71.121 Other infective bursitis, right elbow (principal); G89.29 Other chronic pain; E11.9 Type 2 diabetes mellitus without complications; K59.03 Drug induced constipation; T40.2X5A Adverse effect of other opioids, initial encounter; F17.210 Nicotine dependence, cigarettes, uncomplicated; Z86.14 Personal history of Methicillin resistant Staphylococcus aureus infection; Z79.1 Long term (current) use of non-steroidal anti-inflammatories (NSAID); Z79.4 Long term (current) use of insulin; Z79.84 Long term (current) use of oral hypoglycemic drugs; Z79.899 Other long term (current) drug therapy
CPT/HCPCS: 96365; 96366; J3373; J7050

== ENCOUNTER 2024-12-02 01:37 | Day surgery (SDC) | payer MEDICARE ==
[~2024-12-02] VITALS: Ht 172.7 cm; Wt 82.3 kg
[2024-12-02 13:30] VITALS: BP 126/72
[2024-12-02 14:17] LABS: Vancomycin, Trough 17.2 ug/mL (5.0-10.0)
== END 2024-12-02 15:37 | disposition home or self-care (01) ==
LOC: ATC 01:37
PROVIDERS: Family Medicine
DX: M71.121 Other infective bursitis, right elbow (principal); G89.29 Other chronic pain; E11.9 Type 2 diabetes mellitus without complications; K59.03 Drug induced constipation; T40.2X5A Adverse effect of other opioids, initial encounter; F17.210 Nicotine dependence, cigarettes, uncomplicated; Z86.14 Personal history of Methicillin resistant Staphylococcus aureus infection; Z79.1 Long term (current) use of non-steroidal anti-inflammatories (NSAID); Z79.4 Long term (current) use of insulin; Z79.84 Long term (current) use of oral hypoglycemic drugs; Z79.899 Other long term (current) drug therapy
CPT/HCPCS: 80202; 82565; 96365; J3373; J7050

== ENCOUNTER 2024-12-03 01:55 | Day surgery (SDC) | payer MEDICARE ==
[2024-12-03 13:34] VITALS: BP 112/70
== END 2024-12-03 14:44 | disposition home or self-care (01) ==
LOC: ATC 01:55
DX: M71.121 Other infective bursitis, right elbow (principal); G89.29 Other chronic pain; E11.9 Type 2 diabetes mellitus without complications; K59.03 Drug induced constipation; T50.905A Adverse effect of unspecified drugs, medicaments and biological substances, initial encounter; F17.210 Nicotine dependence, cigarettes, uncomplicated; Z86.14 Personal history of Methicillin resistant Staphylococcus aureus infection; Z79.1 Long term (current) use of non-steroidal anti-inflammatories (NSAID); Z79.4 Long term (current) use of insulin; Z79.84 Long term (current) use of oral hypoglycemic drugs; Z79.890 Hormone replacement therapy; Z79.899 Other long term (current) drug therapy
CPT/HCPCS: 96365; J3373; J7050

== ENCOUNTER 2024-12-04 00:59 | Day surgery (SDC) | payer MEDICARE ==
[2024-12-04 13:38] VITALS: BP 122/88
== END 2024-12-04 14:43 | disposition home or self-care (01) ==
LOC: ATC 00:59
DX: M71.121 Other infective bursitis, right elbow (principal); G89.29 Other chronic pain; E11.9 Type 2 diabetes mellitus without complications; K59.03 Drug induced constipation; T50.905A Adverse effect of unspecified drugs, medicaments and biological substances, initial encounter; F17.210 Nicotine dependence, cigarettes, uncomplicated; Z86.14 Personal history of Methicillin resistant Staphylococcus aureus infection; Z79.1 Long term (current) use of non-steroidal anti-inflammatories (NSAID); Z79.4 Long term (current) use of insulin; Z79.84 Long term (current) use of oral hypoglycemic drugs; Z79.890 Hormone replacement therapy; Z79.899 Other long term (current) drug therapy
CPT/HCPCS: 96365; J3373; J7050

== ENCOUNTER → 2025-02-23 | Outpatient (CLI) | payer OTHER | LOC: LAB 19:08 → LAB SHORT 19:08 | DX: L02.413 Cutaneous abscess of right upper limb (principal) | CPT/HCPCS: 87070; 87077; 87147; 87186; 87205 ==